=== PATIENT | female | born 1970 | race Caucasian/White ===

== ENCOUNTER 2019-08-01 11:20 | Emergency (ER) | payer MEDICAID ==
[2019-08-01] MEDS ORDERED: DECADRON 10MG INJ. IV ONE (11:38)
--- NOTE | 2019-08-01 11:41 | ERPHSYRPT ---
- History of Present Illness Time Seen by Provider: 08/01/19 11:30 Source: patient Exam Limitations: no limitations Physician History: Patient has had left hip pain radiating down her leg, with pain in the left posterior calf for the past week. Patient notified her primary care physician who referred her to the emergency department due to the fact that the primary care provider was concerned for a blood clot potentially in the left lower extremity. Patient has no history of DVTs in the past, no history of immobility , no recent surgery, no oral contraceptive use, and no family history of blood clots. patient does see a chiropractor on occasion for low back issues. Timing/Duration: week(s) (1) Method of Injury: unknown Quality: dull, radiating, aching Back Pain Location: lumbar spine (left hip) Back Pain Radiation: lower legs (left posterior leg) Severity of Pain-Max: moderate Severity of Pain-Current: moderate Modifying Factors: Improves With: nothing Associated Symptoms: lower back pain, No fever, No chills, No sweating, No urinary incontinence, No loss of bowel control, No constipation, No nausea, No vomiting, No problems urinating, No light-headedness, No dizziness, No numbness in legs/feet, No weakness, No sensory/motor loss, No tingling in legs/feet, No muscle spasms Previous symptoms: same symptoms as today, different symptoms (due to the left posterior calf discomfort), no recent treatment Allergies/Adverse Reactions: promethazine [From Phenergan] Allergy (Verified 08/01/19 11:28) Home Medications: Hydroxyzine HCl 25 mg [Atarax 25 mg] 25 mg PO Q12H PRN PRN 08/01/19 [ History] - Review of Systems Constitutional: No Fever, No Chills Eyes: No Symptoms, No Vision Changes Ears, Nose, & Throat: No Mouth Swelling, No Throat Pain, No Hoarse Respiratory: No Cough, No Dyspnea Cardiac: No Chest Pain, No Edema, No Syncope Abdominal/Gastrointestinal: No Abdominal Pain, No Nausea, No Vomiting, No Diarrhea, No Hematemesis, No Hematochezia, No Melena Genitourinary Symptoms: No Dysuria, No Hematuria, No Flank Pain Musculoskeletal: Back Pain, Other (left hip pain), No Neck Pain Skin: No Rash, No Skin Lesions Neurological: No Dizziness, No Focal Weakness, No Headache, No Parasthesia, No Sensory Changes Psychological: No Symptoms Endocrine: No Excessive Sweating Hematologic/Lymphatic: No Easy Bleeding, No Easy Bruising All Other Systems: Reviewed and Negative - Past Medical History Pertinent Past Medical History: Yes Cardiac History: High Cholesterol - Past Surgical History Past Surgical History: Yes Female Surgical History: Section - Female History Hx Now: No - Nursing Vital Signs Nursing Vital Signs: Initial Vital Signs Temperature 98.5 F 08/01/19 11:28 Pulse Rate 73 08/01/19 11:28 Respiratory Rate 18 08/01/19 11:28 Blood Pressure 150/76 08/01/19 11:28 O2 Sat by Pulse Oximetry 100 08/01/19 11:28 Pain Scale Pain Intensity 3 - Physical Exam General Appearance: no apparent distress, alert Eye Exam: PERRL/EOMI, eyes nml inspection, No scleral icterus, No pale conjunctivae Neck Exam: normal inspection, non-tender, supple, full range of motion, No meningismus, No midline tenderness Respiratory Exam: normal breath sounds, lungs clear, airway intact, No respiratory distress, No diminished breath sounds, No crackles/rales, No rhonchi , No wheezing Cardiovascular Exam: regular rate/rhythm, normal heart sounds, normal peripheral pulses, capillary refill <2 sec Gastrointestinal Exam: soft, No tenderness, No mass Back Exam: No CVA tenderness, No vertebral tenderness, No rash, No point tenderness Extremity Exam: normal inspection, normal range of motion, pelvis stable, No calf tenderness, No carmen's sign, No pedal edema, No swelling Neurologic Exam: alert, oriented x 3, cooperative, 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, normal mood/affect, nml station & gait, sensation nml, No motor deficits Skin Exam: normal color, warm, dry, No rash, No jaundice SpO2 Interpretation: normal O2 Delivery: Room Air - Course Nursing assessment & vital signs reviewed: Yes - Radiology Exams L-Spine X-ray Interpretation: Interpreted by me, Reviewed by me, No Fracture, No Subluxation, Nml Alignment, Nml Soft Tissues, Other (per Radiologist interpretation: minimal L5-S1 disc space narrowing and minimal multilevel anterior endplate spurring) Left Hip X-ray Interpretation: Interpreted by me, Reviewed by me, No Fracture, Nml Alignment, Nml Soft Tissues - Radiology Ultrasound Exam Left Venous Lower Extremity Ultrasound: negative (Per Radiologist Interpretation: Negative for DVT), Other Ordered Tests: Active Orders 24 hr Category Date Time Status IV Insertion STAT Care 08/01/19 11:37 Active HIP UNI (2V) INCL PEL IF DONE Stat Exams 08/01/19 11:35 Completed LUMBAR COMPLETE (MIN 4 VIEWS) Stat Exams 08/01/19 12:41 Completed VENOUS UNILAT/LIMITED EXTREMIT [US] Stat Exams 08/01/19 11:36 Completed CBC W DIFF Stat Lab 08/01/19 12:15 Completed CMP Stat Lab 08/01/19 12:15 Completed MAGNESIUM Stat Lab 08/01/19 12:15 Completed Medication Summary Discontinued Medications Generic Name Dose Route Start Last Admin Trade Name Freq PRN Reason Stop Dose Admin Dexamethasone Sodium Phosphate 10 mg 08/01/19 11:38 08/01/19 12:28 Decadron 10mg Inj. IV 08/01/19 11:39 10 mg STAT ONE Administration Dexamethasone Sodium Phosphate Confirm 08/01/19 12:09 Decadron 10mg Inj. Administered 08/01/19 12:10 Dose 10 mg .ROUTE .STK-MED ONE Dexamethasone Sodium Phosphate Confirm 08/01/19 12:14 Decadron 10mg Inj. Administered 08/01/19 12:15 Dose 10 mg .ROUTE .STK-MED ONE Lab/Rad Data: Laboratory Result Diagrams 08/01/19 12:15 08/01/19 12:15 Laboratory Results 08/01/19 08/01/19 Range/Units 12:15 12:15 WBC 6.7 (4.0-10.5) K/mm3 RBC 4.21 (4.1-5.4) M/mm3 Hgb 13.9 (12.0-16.0) gm/dl Hct 41.4 (35-47) % MCV 98.3 (78-100) fl MCH 33.0 H (26-32) pg MCHC 33.6 (32-36) g/dl RDW 12.2 (11.5-14.0) % Plt Count 224 (150-450) K/mm3 MPV 11.1 H (6-9.5) fl Gran % 66.1 H (36.0-66.0) % Eos # (Auto) 0.11 (0-0.5) Absolute Lymphs (auto) 1.49 (1.0-4.6) Absolute Monos (auto) 0.66 (0.0-1.3) Lymphocytes % 22.2 L (24.0-44.0) % Monocytes % 9.8 (0.0-12.0) % Eosinophils % 1.6 (0.00-5.0) % Basophils % 0.3 (0.0-0.4) % Absolute Granulocytes 4.43 (1.4-6.9) Basophils # 0.02 (0-0.4) Sodium 140 (137-145) mmol/L Potassium 4.0 (3.5-5.1) mmol/L Chloride 106 (98-107) mmol/L Carbon Dioxide 29 (22-30) mmol/L Anion Gap 9.5 (5-15) MEQ/L BUN 9 (7-17) mg/dL Creatinine 0.67 (0.52-1.04) mg/dL Estimated GFR > 60.0 ML/MIN Glucose 89 (74-106) mg/dL Calcium 9.2 (8.4-10.2) mg/dL Magnesium 1.9 (1.6-2.3) mg/dL Total Bilirubin 0.90 (0.2-1.3) mg/dL AST 19 (14-36) U/L ALT 12 (0-35) U/L Alkaline Phosphatase 61 (38-126) U/L Serum Total Protein 7.1 (6.3-8.2) g/dL Albumin 3.9 (3.5-5.0) g/dL - Progress Progress: improved Progress Note: 08/01/19 13:30 Patient has no focal lower extremity neurovascular history deficits 08/01/19 13:42 the patient does not require any further testing immediately at this time for a referral to a facility to neurosurgery or orthopedic spine surgery capabilities at this time if she has no focal deficits outside her symptomatology. Patient will follow-up with her physician to continue evaluation and management of her issues as an outpatient in the next day. Counseled pt/family regarding: lab results, diagnosis, need for follow-up, rad results - Departure Departure Disposition: Home Clinical Impression: Left hip pain, Lumbosacral radiculopathy at S1, Degeneration of lumbosacral intervertebral disc, Elevated blood pressure reading without diagnosis of hypertension Condition: Good Critical Care Time: No Referrals: ULISSES RODRIGUEZ [Primary Care Provider] - 08/02/19 Instructions: Herniated Disc (DC), Radiculopathy (DC), Low Back Pain (DC) Additional Instructions: Your study was negative for any blood clots in her left leg. Her lab work is normal.A. left hip x-ray was normal also. It well back x-ray show some degenerative disc issues at L5-S1, which involved her physician. This lower back changes are most likely explaining your symptoms you have been experiencing over the past week. Return immediately back to the emergency department if any new weakness in the lower extremities, loss of sensation in the lower extremities, new fever, new abdominal pain, inability to control your bowels or bladder or any other concerning signs or symptoms that were not present at today's emergency department visit for immediate reevaluation in the emergency department.
[2019-08-01] MEDS ORDERED: DECADRON 10MG INJ. ONE ×2 (12:09→12:14)
[2019-08-01 12:28] LABS: Absolute Neutrophil Ct (ANC) 4.43 (1.4-6.9); BASOPHIL % 0.3 % (0.0-0.4); Basophil (Absolute #) 0.02 (0-0.4); Eosinophil % 1.6 % (0.00-5.0); Eosinophil (Absolute #) 0.11 (0-0.5); Hematocrit 41.4 % (35-47); Hemoglobin 13.9 gm/dl (12.0-16.0); Lymphocyte (Absolute #) 1.49 (1.0-4.6); Lymphocytes % 22.2 % (24.0-44.0); Mean Cell Volume 98.3 fl (78-100); Mean Corpuscular Hgb Concent. 33.6 g/dl (32-36); Mean Platelet Volume 11.1 fl (6-9.5); Monocyte (Absolute #) 0.66 (0.0-1.3); Monocytes % 9.8 % (0.0-12.0); Neutrophil % 66.1 % (36.0-66.0); Platelet Count 224 K/mm3 (150-450); Red Blood Count 4.21 M/mm3 (4.1-5.4); Red Cell Distribution Width 12.2 % (11.5-14.0); White Blood Count 6.7 K/mm3 (4.0-10.5)
--- NOTE | 2019-08-01 12:32 | XRAY ---
Indication: Calf pain. Two-dimensional sonogram and color Doppler imaging of the major venous vessels of the left leg was performed. Comparison: None No thrombus seen in the examined deep venous vessels of the left leg including greater saphenous vein. Veins demonstrate normal compressibility. Venous waveforms are normal with and without augmentation. Impression: Left leg negative for DVT.
[2019-08-01 12:39] LABS: ALBUMIN 3.9 g/dL (3.5-5.0); ALKALINE PHOSPHATASE 61 U/L (38-126); ANION GAP 9.5 MEQ/L (5-15); BLOOD UREA NITROGEN 9 mg/dL (7-17); CHLORIDE 106 mmol/L (98-107); Calcium 9.2 mg/dL (8.4-10.2); Carbon Dioxide 29 mmol/L (22-30); Creatinine 1 0.67 mg/dL (0.52-1.04); Glucose 89 mg/dL (74-106); MAGNESIUM 1.9 mg/dL (1.6-2.3); SGOT/AST 19 U/L (14-36); SGPT/ALT 12 U/L (0-35); SODIUM 140 mmol/L (137-145); Total Protein 7.1 g/dL (6.3-8.2)
--- NOTE | 2019-08-01 12:51 | XRAY ---
Indication: Left hip/leg pain. Comparison: None 5 views of the lumbar spine demonstrates normal alignment with minimal multilevel anterior endplate spurring and minimal L5-S1 disc space narrowing. No other bony, articular, or soft tissue abnormalities.
--- NOTE | 2019-08-01 12:51 | XRAY ---
Indication: Pain. Comparison: None 2 views of the left hip obtained. No bony, articular, or soft tissue abnormalities.
[2019-08-01 13:46] VITALS: BP 94/56; PULSE 66; O2SAT 98
== END 2019-08-01 14:15 | disposition home or self-care (01) ==
LOC: ED 11:20
DX: M25.552 Pain in left hip (principal); M54.17 Radiculopathy, lumbosacral region; M51.37 Other intervertebral disc degeneration, lumbosacral region; R03.0 Elevated blood-pressure reading, without diagnosis of hypertension; Z79.899 Other long term (current) drug therapy; E78.00 Pure hypercholesterolemia, unspecified
CPT/HCPCS: 36000; 36415; 72110; 73502; 80053; 83735; 85025; 93971; 96374; 99284; J1100

== ENCOUNTER 2022-05-25 06:38 | Day surgery (SDC) | payer OTHER ==
[~2022-05-25 06:38] MED LIST: CEFAZOLIN 2 GM-D5W BAG** 2 GM/50 ML ML IV SCH; Lactated Ringers 1,000 ML IV SCH
[2022-05-25] MEDS ORDERED: Lactated Ringers 1,000 ML IV ONE (06:51)
[2022-05-25] MEDS ORDERED: CEFAZOLIN 2 GM-D5W BAG** 2 GM/50 ML ML IV ONE (06:51)
[2022-05-25] MEDS ORDERED: Versed 2 MG/2 ML Injection IV PRN (07:43)
[2022-05-25] MEDS ORDERED: Versed 2 MG/2 ML Injection ONE (07:45)
[2022-05-25] MEDS ORDERED: Zofran 4 MG/2 ML VIAL ONE (08:24)
[2022-05-25] MEDS ORDERED: SUBLIMAZE 100 MCG/2 ML ONE (08:24)
[2022-05-25] MEDS ORDERED: Decadron 4 MG INJ ONE (08:24)
[2022-05-25] MEDS ORDERED: DIPRIVAN 200 MG/20 ML IV ONE (08:24)
[2022-05-25] MEDS ORDERED: Xylocaine-Mpf 2% 5 Ml Vial ONE (08:24)
[2022-05-25 10:18] VITALS: O2SAT 95
[2022-05-25 10:59] VITALS: BP 136/78; PULSE 64
--- NOTE | 2022-05-26 10:23 | OP ---
SURGERY DATE: 05/25/2022 SURGERY TIME: 835 PREOPERATIVE DIAGNOSIS: 1. POSTMENOPAUSAL BLEEDING. POSTOPERATIVE DIAGNOSIS: 1. POSTMENOPAUSAL BLEEDING. PROCEDURE: 1. Hysteroscopy D&C. SURGEON: Dr. Jluis Ruiz. HAND GLASS CUTTER: aircraft ordnance technician, Erica. ANESTHESIA: General. ESTIMATED BLOOD LOSS: Minimal. COMPLICATIONS: None. FINDINGS: The risks, benefits, indications, and alternatives of the procedure were reviewed with the patient prior to the procedure. Patient understood the risks of infection, bleeding, bowel injury, bladder injury, ureteral injury, and uterine perforation associated with this surgery. Desires to have this procedure as a possible means to alleviate her current medical condition. DESCRIPTION OF PROCEDURE: At this point, the patient was taken to the OR, given general sedation, placed in the dorsal lithotomy position, prepped and draped in the usual sterile fashion. A weighted speculum was then placed in the patient's vagina and the anterior lip of the cervix was grasped with the single toothed tenaculum. Endocervical dilators were advanced through the endocervical canal as needed to dilate the cervix and a 5 mm hysteroscope was then placed in through the endocervical canal where visualization of the endometrial lining appeared to be within normal limits with no gross abnormalities noted. At this point, the hysteroscope was removed and the curette was then placed in the fundus of the uterus and curettage was performed within all quadrants of the uterus retrieving a mild to moderate amount of tissue. From this point, hemostasis was obtained. From this point, all instruments were then removed from the patient's vaginal region. The patient then taken out of the dorsal lithotomy position, was taken out of anesthesia, and was then taken to the recovery room in stable condition. All instruments and Laps were accounted for X 2.
== END 2022-05-25 10:50 | disposition home or self-care (01) ==
LOC: SDC 06:38
PROVIDERS: ATTEND Obstetrics & Gynecology
DX: N95.0 Postmenopausal bleeding (principal)
CPT/HCPCS: 81025; J0690; J1100; J2250; J2405; J2704; J3010